=== PATIENT | female | born 1945 | race Caucasian/White ===

== ENCOUNTER → 2018-10-13 | Outpatient (CLI) | payer OTHER, MEDICAID | LOC: FIMAGING 13:47 | PROVIDERS: ATTEND Family Medicine | DX: N63.22 Unspecified lump in the left breast, upper inner quadrant (principal) ==

== ENCOUNTER → 2018-10-26 | Outpatient (CLI) | payer OTHER, MEDICAID ==
[~2018-10-26] MED LIST: BUPIVACAINE 0.5% 30 ML SDV ONE; LIDOCAINE 1% 300 MG/30 ML SDV ONE
== END ==
LOC: FIMAGING 07:23
PROVIDERS: ATTEND Family Medicine
PROC: 0HBU3ZX Excision of Left Breast, Percutaneous Approach, Diagnostic (ICD-10-PCS; principal; 2018-10-26)
PROC: 07B63ZX Excision of Left Axillary Lymphatic, Percutaneous Approach, Diagnostic (ICD-10-PCS; 2018-10-26)
DX: N63.22 Unspecified lump in the left breast, upper inner quadrant (principal); C50.912 Malignant neoplasm of unspecified site of left female breast; C77.3 Secondary and unspecified malignant neoplasm of axilla and upper limb lymph nodes

== ENCOUNTER → 2018-12-10 | Outpatient (CLI) | payer OTHER, MEDICAID | LOC: FIMAGING 13:59 ==

== ENCOUNTER 2018-12-16 06:33 | Day surgery (SDC) | payer OTHER, MEDICAID | END 2018-12-16 15:42 | disposition home or self-care (01) | LOC: FSGY 06:33 ==